=== PATIENT | male | born 1990 | race Two or more races ===

== ENCOUNTER 2023-11-01 14:54 | Emergency (ER) | payer BC, OTHER ==
[~2023-11-01] VITALS: Ht 185.4 cm; Wt 97.0 kg
[2023-11-01] MEDS ORDERED: IBUP-1455 PO (15:54)
[2023-11-01] MEDS ORDERED: CYCL-837 PO (15:54)
[2023-11-01] MEDS: KETOROLAC TROMETH 30 MG/ML 1ML VIAL IM ONE (19:38)
[2023-11-01] MEDS: methylPREDNISolone SOD SUCC 125 MG/2 ML VL IM ONE (19:39)
[2023-11-01 19:40] VITALS: BP 122/74; PULSE 64; RESP 18; TEMP 98.2; O2SAT 98
== END 2023-11-01 19:52 | disposition home or self-care (01) ==
LOC: ER 14:54 → EDBD 14:54 → ER 19:52
DX: M54.16 Radiculopathy, lumbar region (principal)
CPT/HCPCS: 96372; 99284; J1885; J2919